=== PATIENT | male | born 1975 | race Two or more races ===

== ENCOUNTER → 2025-07-12 | Emergency (ER) | payer OTHER ==
[~2025-07-12] VITALS: Ht 188 cm; Wt 116.1 kg
[~2025-07-12] MED LIST: BUPROPION XL450 MG; TOPROL XL25 M1
== END | disposition left against medical advice (07) ==
LOC: ER 20:40 → EDBD 21:01 → ER 21:01
DX: Z53.21 Procedure and treatment not carried out due to patient leaving prior to being seen by health care provider (principal)

== ENCOUNTER 2025-07-15 08:18 | Inpatient (IN) | payer OTHER ==
[~2025-07-15] VITALS: Ht 182.9 cm; Wt 254.9 kg
--- NOTE | 2025-07-15 08:32 | NUR ---
PTE ALERTA Y ORIENTADA X3 SE JOSE ROBERTO S/V. PTE REFIERE QUE DESDE HACE [address] PRESENTA DOLOR DE VESICULA. PTE REFIERE QUE RAPHAEL. TERRY LE INDICO QUE FUERA A ER.
[2025-07-15] MEDS ORDERED: ONDANSETRON HCL 2 MG/ML VIAL ONE ×2 (08:36→08:37)
[2025-07-15] MEDS ORDERED: FAMOTIDINE/PF 20 MG/2 ML VIAL ONE ×2 (08:37→20:21)
[2025-07-15] MEDS ORDERED: 0.9 % SODIUM CHLORIDE 1,000 ML IV ONE (08:45)
[2025-07-15] MEDS ORDERED: MORPHINE SULFATE 4 MG/ML VIAL IV ONE ×4 (08:45→20:00)
[2025-07-15] MEDS ORDERED: FAMOtidine 10 MG/ML (4ML VIAL) IV ONE (08:45)
[2025-07-15] MEDS ORDERED: ONDANSETRON HCL 2 MG/ML VIAL IV ONE (08:45)
--- NOTE | 2025-07-15 08:45 | NUR ---
RN GUILLORY ORIENTA SOBRE TRATAMIENTO MEDICO. SE CANALIZA VENA Y SE JOS EROBERTO MUESTRAS DE LAB. SE ADMINISTRA MEDICAMENTO POR ORDEN MEDICA.
[2025-07-15] MEDS ORDERED: PIPERACILLIN/TAZOBACTAM SODIUM 3.375 GM VIAL IV ONE ×2 (08:53→09:00)
[2025-07-15 09:07] LABS: BASO % 0.5 % (0.1-1.2); EOS # 0.09 (0.04-0.54); EOS % 1.1 % (0.7-7.0); LYMPH # 0.90 (1.18-3.74); LYMPH % 10.8 % (19.3-53.1); MEAN PLATELET VOLUME 10.60 fl (9.4-12.4); MONO # 0.33 (0.24-0.82); MONO % 4.0 % (4.7-12.5); NEUT # 6.95 (1.56-6.13); NEUT % 83.4 % (34.0-71.1); RED CELL DISTRIBUTION WIDTH 13.0 % (11.6-14.4)
[2025-07-15 09:14] LABS: URINE APPEARANCE Clear; URINE BILIRRUBIN Negative (NEGATIVE); URINE BLOOD Negative; URINE COLOR Yellow; URINE GLUCOSE Negative (NEGATIVE); URINE KETONE Negative (NEGATIVE); URINE LEUKOCYTE Negative; URINE NITRATE Negative; URINE PROTEIN Negative (NEGATIVE); URINE UROBILINOGEN 0.2 E.U./dl
[2025-07-15 09:40] LABS: URINE BACTERIA 0 uL (0.0-1933); URINE CAST 0.00 uL (0.0-1.40); URINE EPITHELIAL CELLS 0.1 uL (0.0-38.8); URINE RBC 0.1 uL (0.0-20.8); URINE WBC 0.7 uL (0.0-23.2)
[2025-07-15 10:29] LABS: INR 1.04
[2025-07-15 12:09] LABS: ALT/SGPT 41.0 U/L (12-78); AST/SGOT 19.0 U/L (15-37); BILIRUBIN TOTAL 1.04 mg/dL (0.3-1.2); BUN CREA RATIO 13.0 (7.0-25.0); CREATININE SERUM 0.85 mg/dL (0.70-1.30); GFR 96.2; GLOBULINA 3.4 G/DL (2.4-3.5); GLUCOSE FASTING 115.0 mg/dL (65-100); OSMOLALITY SERUM 282.0 MOSM/KG (275-295)
[2025-07-15 12:27] LABS: BILIRUBIN TOTAL 1.0 mg/dL (0.3-1.2); BILIRUBIN,CONJUGATED 0.3 mg/dL (0.0-0.2)
[2025-07-15] MEDS ORDERED: BUPIVACAINE HCL/MPF 0.5% 30ML VIAL ONE (16:47)
[2025-07-15] MEDS ORDERED: LIDOCAINE HCL 1%/EPINEPHRINE 20ML VIAL IJ ONE (16:47)
[2025-07-15] MEDS ORDERED: OxyCODONE HCL 5 MG TABLET (ROXICODONE) PO PRN (17:15)
[2025-07-15] MEDS ORDERED: MORPHINE SULFATE 4 MG/ML CARTRIDGE IV PRN (17:15)
[2025-07-15] MEDS ORDERED: ONDANSETRON HCL 2 MG/ML VIAL IV PRN (17:15)
[2025-07-15] MEDS ORDERED: RINGERS SOLUTION,LACTATED 1,000 ML IV SCH (17:15)
[2025-07-15] MEDS ORDERED: THROMBIN,HU/FIBRINOGEN/CALCIUM 4 ML SYRINGE TOP ONE (17:56)
[2025-07-15] MEDS ORDERED: VISTASEAL DUAL APPICATOR 1 EACH APPL TOP ONE (17:56)
[2025-07-15] MEDS ORDERED: SUGAMMADEX SODIUM 200 MG/2 ML VIAL IV ONE (18:13)
[2025-07-15] MEDS ORDERED: ACETAMINOPHEN 500 MG GEL..CAP PO SCH (20:00)
[2025-07-15] MEDS ORDERED: FAMOTIDINE/PF 20 MG/2 ML VIAL IV PUSH SCH (21:00)
[2025-07-15] MEDS ORDERED: SIMETHICONE 125 MG CAPSULE PO SCH (21:00)
[2025-07-15] MEDS ORDERED: CELECOXIB 200 MG CAPSULE PO SCH (21:00)
[2025-07-15 21:03] VITALS: BP 126/82; O2SAT 95
[2025-07-16] MEDS ORDERED: METOCLOPRAMIDE HCL 5 MG/ML VIAL IV SCH (01:00)
[2025-07-16 01:35] VITALS: BP 118/76; O2SAT 100
[2025-07-16 06:24] LABS: BASO % 0.2 % (0.1-1.2); EOS # 0.01 (0.04-0.54); EOS % 0.1 % (0.7-7.0); LYMPH # 1.58 (1.18-3.74); LYMPH % 13.8 % (19.3-53.1); MEAN PLATELET VOLUME 10.90 fl (9.4-12.4); MONO # 1.15 (0.24-0.82); MONO % 10.1 % (4.7-12.5); NEUT # 8.61 (1.56-6.13); NEUT % 75.4 % (34.0-71.1); RED CELL DISTRIBUTION WIDTH 13.1 % (11.6-14.4)
[2025-07-16 07:17] LABS: BUN CREA RATIO 14.0 (7.0-25.0); CREATININE SERUM 0.85 mg/dL (0.70-1.30); GFR 96.2; GLUCOSE FASTING 101.0 mg/dL (65-100); OSMOLALITY SERUM 277.0 MOSM/KG (275-295)
[2025-07-16 08:12] VITALS: BP 106/68; O2SAT 97
[2025-07-16] MEDS ORDERED: CELECOXIB200 MG PO (08:29)
[2025-07-16] MEDS ORDERED: PROTONIX40 MG PO (08:30)
[2025-07-16] MEDS ORDERED: TRAM1TAB98 PO (08:30)
[2025-07-16] MEDS ORDERED: HYOSCYAMINE SULFATE 0.125 MG TAB.SUBL SL SCH (09:00)
== END 2025-07-16 15:30 | disposition home or self-care (01) | DRG 419 ==
LOC: ER 08:18 → O/R 15:57 → SURG 15:57
PROVIDERS: General Practice; ADMIT Surgery; ATTEND Surgery
PROC: BW40ZZZ Ultrasonography of Abdomen (ICD-10-PCS; 2025-07-15)
PROC: BW21YZZ Computerized Tomography (CT Scan) of Abdomen and Pelvis using Other Contrast (ICD-10-PCS; 2025-07-15)
PROC: 0FT44ZZ Resection of Gallbladder, Percutaneous Endoscopic Approach (ICD-10-PCS; principal; 2025-07-15 17:00)
DX: K80.10 Calculus of gallbladder with chronic cholecystitis without obstruction (principal); K80.50 Calculus of bile duct without cholangitis or cholecystitis without obstruction; D64.9 Anemia, unspecified